=== PATIENT | female | born 1955 | race Asian ===

== ENCOUNTER 2017-10-11 06:25 | Day surgery (SDC) | payer BC, OTHER ==
[2017-10-11] MEDS ORDERED: MIDAZOLAM 1 MG/ML 2 ML INJ ×2 (08:16)
[2017-10-11] MEDS ORDERED: FENTAnyl 50 MCG/ML VIAL (08:16)
== END 2017-10-11 11:22 | disposition home or self-care (01) ==
LOC: GIL 06:25
DX: Z12.11 Encounter for screening for malignant neoplasm of colon (principal); D12.3 Benign neoplasm of transverse colon; K64.8 Other hemorrhoids
CPT/HCPCS: 45380; 88305